=== PATIENT | female | born 1985 | race Two or more races ===

== ENCOUNTER 2016-08-21 21:51 | Emergency (ER) | payer MEDICAID ==
[2016-08-22] MEDS ORDERED: ACETAMINOPHEN 325 MG TABLET PO ONE (00:19)
[2016-08-22 01:01] LABS: APPEARANCE,URINE SLIGHTLY-CLOUDY; BILIRUBIN,URINE MODERATE (NEGATIVE); GLUCOSE, URINE NEGATIVE (NEGATIVE); KETONES,URINE 20 mg/dL (NEGATIVE); LEUKOCYTE ESTERASE,URINE NEGATIVE (NEGATIVE); NITRITE,URINE NEGATIVE (NEGATIVE); PROTEIN,URINE 30 mg/dL (NEGATIVE); URINE SPECIFIC GRAVITY 1.038
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
[2016-08-22] MEDS ORDERED: NAPROXEN 250 MG TABLET PO ONE (02:48)
[2016-08-22] MEDS ORDERED: TRAMADOL HCL 50 MG TABLET PO ONE (02:56)
[2016-08-22 03:30] VITALS: BP 136/98
== END 2016-08-22 03:22 | disposition home or self-care (01) ==
LOC: ER 21:51
DX: R68.89 Other general symptoms and signs (principal); M79.1 Myalgia; R05 Cough; F17.200 Nicotine dependence, unspecified, uncomplicated
CPT/HCPCS: 71020; 81001; 81025; 87804; 99283

== ENCOUNTER → 2016-09-24 | Outpatient (CLI) | payer MEDICAID | LOC: RAD 09:43 | PROVIDERS: ATTEND Physician Assistant | DX: R10.31 Right lower quadrant pain (principal) | CPT/HCPCS: 74000 ==

== ENCOUNTER 2016-10-13 11:59 | Emergency (ER) | payer MEDICAID ==
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
[2016-10-13 14:16] VITALS: BP 126/88
== END 2016-10-13 14:12 | disposition home or self-care (01) ==
LOC: ER 11:59
DX: S02.5XXA Fracture of tooth (traumatic), initial encounter for closed fracture (principal); X58.XXXA Exposure to other specified factors, initial encounter; Y93.89 Activity, other specified; K02.9 Dental caries, unspecified; F17.200 Nicotine dependence, unspecified, uncomplicated; J45.909 Unspecified asthma, uncomplicated
CPT/HCPCS: 99282

== ENCOUNTER 2016-11-19 12:46 | Emergency (ER) | payer MEDICAID ==
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
[2016-11-19 15:00] LABS: ABSOLUTE BASOPHILS # (AUTO) 0.1 10^3/uL (0.0-0.2); ABSOLUTE EOSINOPHILS # (AUTO) 0.1 10^3/uL (0.0-0.6); ABSOLUTE LYMPHOCYTES (AUTO) 2.7 10^3/uL (0.5-4.7); ABSOLUTE MONOCYTES (AUTO) 0.8 10^3/uL (0.1-1.4); BASOPHILS % (AUTO) 0.8 % (0-2); EOSINOPHILS % (AUTO) 1.3 % (0-6); HEMATOCRIT 40.1 % (36.0-47.0); HEMOGLOBIN 13.1 g/dL (12.0-15.5); HGB HCT DIFFERENCE -0.8; LYMPHOCYTES % (AUTO) 25.1 % (13-45); MEAN CORPUSCULAR HEMOGLOBIN 30.2 pg (27.0-33.4); MEAN CORPUSCULAR HGB CONC 32.5 g/dL (32.0-36.0); MEAN CORPUSCULAR VOLUME 93 fl (80-97); MONOCYTES % (AUTO) 7.5 % (3-13); RED BLOOD COUNT 4.32 10^6/uL (3.72-5.28); RED CELL DISTRIBUTION WIDTH 16.6 % (11.5-14.0); SEGMENTED NEUTROPHILS % (AUTO) 65.3 % (42-78); WHITE BLOOD COUNT 10.8 10^3/uL (4.0-10.5)
[2016-11-19 15:11] LABS: ALANINE AMINOTRANSFERASE 21 U/L (9-52); ALBUMIN 4.6 g/dL (3.5-5.0); ALKALINE PHOSPHATASE 58 U/L (38-126); ANION GAP 13 (5-19); ASPARTATE AMINO TRANSFERASE 15 U/L (14-36); BILIRUBIN,DIRECT 0.3 mg/dL (0.0-0.4); BILIRUBIN,TOTAL 0.7 mg/dL (0.2-1.3); BLOOD UREA NITROGEN 10 mg/dL (7-20); CALCIUM 9.6 mg/dL (8.4-10.2); CARBON DIOXIDE 27 mmol/L (22-30); CHLORIDE 105 mmol/L (98-107); CREATININE RESULT 0.76 mg/dL (0.52-1.25); GLUCOSE 46 mg/dL (75-110); POTASSIUM 4.1 mmol/L (3.6-5.0); SODIUM 145.4 mmol/L (137-145); TOTAL PROTEIN 8.4 g/dL (6.3-8.2)
[2016-11-19] MEDS ORDERED: OXYCODONE-ACETAMINOPHEN 5-325 MG TABLET PO ONE (15:32)
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
[2016-11-19 16:30] LABS: APPEARANCE,URINE CLOUDY; BILIRUBIN,URINE NEGATIVE (NEGATIVE); GLUCOSE, URINE NEGATIVE (NEGATIVE); KETONES,URINE NEGATIVE (NEGATIVE); LEUKOCYTE ESTERASE,URINE NEGATIVE (NEGATIVE); NITRITE,URINE NEGATIVE (NEGATIVE); PROTEIN,URINE NEGATIVE (NEGATIVE)
[2016-11-19 16:42] VITALS: BP 143/92
== END 2016-11-19 16:40 | disposition home or self-care (01) ==
LOC: ER 12:46
DX: O46.91 Antepartum hemorrhage, unspecified, first trimester (principal); R10.30 Lower abdominal pain, unspecified; F17.200 Nicotine dependence, unspecified, uncomplicated
CPT/HCPCS: 36415; 80053; 81001; 84702; 85025; 99284

== ENCOUNTER 2017-07-21 14:50 | Emergency (ER) | payer MEDICAID ==
[2017-07-21 15:16] VITALS: BP 146/97
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
[2017-07-21 17:47] LABS: BACTERIA (WET MOUNT) 3+ BACTERIA SEEN; RBCS (WET MOUNT) 1+ RBCS SEEN; T.VAGINALIS (WET MOUNT) NO TRICHOMONAS SEEN; WBCS (WET MOUNT) 1+ WBCS SEEN; YEAST (WET MOUNT) NO YEAST SEEN
[2017-07-21 18:00] LABS: APPEARANCE,URINE CLEAR; BILIRUBIN,URINE NEGATIVE (NEGATIVE); COLOR,URINE YELLOW; GLUCOSE, URINE NEGATIVE (NEGATIVE); KETONES,URINE NEGATIVE (NEGATIVE); LEUKOCYTE ESTERASE,URINE NEGATIVE (NEGATIVE); NITRITE,URINE NEGATIVE (NEGATIVE); PROTEIN,URINE NEGATIVE (NEGATIVE); URINE SPECIFIC GRAVITY 1.024
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
== END 2017-07-21 18:30 | disposition left against medical advice (07) ==
LOC: ER 14:50
DX: O26.851 Spotting complicating pregnancy, first trimester (principal); O26.891 Other specified pregnancy related conditions, first trimester; R10.2 Pelvic and perineal pain; O99.511 Diseases of the respiratory system complicating pregnancy, first trimester; J45.909 Unspecified asthma, uncomplicated; O99.331 Smoking (tobacco) complicating pregnancy, first trimester; O99.89 Other specified diseases and conditions complicating pregnancy, childbirth and the puerperium; M54.5 Low back pain; Z3A.01 Less than 8 weeks gestation of pregnancy; Z87.42 Personal history of other diseases of the female genital tract
CPT/HCPCS: 36415; 81001; 84702; 86900; 86901; 87210; 99281

== ENCOUNTER → 2017-07-23 | Outpatient (CLI) | payer MEDICAID ==
--- NOTE | 2017-07-23 14:55 | RADIOLOGY REPORT (SQ) ---
EXAM DESCRIPTION: U/S [id number] TRNABD 1GES W/ODOP COMPLETED DATE/TIME: 07/23/2017 2:45 pm REASON FOR STUDY: LESS THAN 8 WEEKS GESTATION OF (Z3A.01) Z3A.01 LESS THAN 8 WEEKS GESTAT ION OF COMPARISON: None. TECHNIQUE: Transvaginal and transabdominal static and realtime grayscale images acquired of the pelv is. Additional selected spectral and color Doppler images recorded. All images stored on PACs. BHC LIMITATIONS: None. FINDINGS: UTERUS: No visualized intrauterine . RIGHT ADNEXA: Normal ovary with normal vascular flow. No adnexal free fluid. No adnexal masses. LEFT ADNEXA: Normal ovary with normal vascular flow. No adnexal free fluid. No adnexal masses. FREE FLUID: None. OTHER: No other significant finding. IMPRESSION: NO VISUALIZED INTRA- OR EXTRAUTERINE . bHCG LEVEL TOO LOW TO EXPECT VISUALIZATION OF . ECTOPIC CANNOT BE EXCLUDED. FOLLOW-UP ULTRASOUND AND SERIAL BHCG LEVELS STRONGLY RECOMMENDED TO ACCURATELY ASSESS STATU S. TECHNICAL DOCUMENTATION: JOB ID: [id number] [employer]- All Rights Reserved
== END ==
LOC: RAD 12:27
PROVIDERS: ATTEND Physician Assistant
DX: Z34.91 Encounter for supervision of normal pregnancy, unspecified, first trimester (principal); Z3A.01 Less than 8 weeks gestation of pregnancy
CPT/HCPCS: 76801

== ENCOUNTER 2017-07-28 08:18 | Emergency (ER) | payer MEDICAID ==
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
[2017-07-28] MEDS ORDERED: ACETAMINOPHEN 325 MG TABLET PO ONE (10:08)
--- NOTE | 2017-07-28 11:20 | RADIOLOGY REPORT (SQ) ---
EXAM DESCRIPTION: U/S OB TRANSVAGINAL W/O DOP COMPLETED DATE/TIME: 07/28/2017 11:08 am REASON FOR STUDY: vaginal bleeding, + preg TECHNIQUE: Endovaginal static and realtime grayscale images acquired of the pelvis. Additional selec alix spectral and color Doppler images recorded. All images stored on PACs. BHC,252 today (was 479 on 07/23/2017) LIMITATIONS: None. FINDINGS: UTERUS: No visualized intrauterine . Uterus is 9.2 x 5.6 x 4.3 cm in size. Endo metrial stripe 9 mm in thickness. No intrauterine gestational sac identified. RIGHT ADNEXA: Normal ovary with normal vascular flow. Right ovary 3 x 2.1 x 1.6 cm in size. No adnexal free fluid. No adnexal masses. LEFT ADNEXA: Normal ovary with normal vascular flow. Left ovary 2.3 x 2.4 x 1.6 cm in size. No adnexal free fluid. No adnexal masses. FREE FLUID: None. OTHER: No other significant finding. IMPRESSION: NO VISUALIZED INTRA- OR EXTRAUTERINE . bHCG LEVEL TOO LOW TO EXPECT VISUALIZATION OF . ECTOPIC CANNOT BE EXCLUDED. FOLLOW-UP ULTRASOUND AND SERIAL BHCG LEVELS STRONGLY RECOMMENDED TO ACCURATELY ASSESS STATU S. TECHNICAL DOCUMENTATION: JOB ID: [id number] [employer]- All Rights Reserved COMPARISON: None. 07/23/2017
[2017-07-28 11:52] VITALS: BP 135/92
== END 2017-07-28 11:50 | disposition home or self-care (01) ==
LOC: ER 08:18
DX: O20.0 Threatened abortion (principal); R10.2 Pelvic and perineal pain; Z3A.00 Weeks of gestation of pregnancy not specified; F17.200 Nicotine dependence, unspecified, uncomplicated
CPT/HCPCS: 99284; 36415; 84702; 76817; J3490

== ENCOUNTER 2017-08-28 18:19 | Emergency (ER) | payer MEDICAID ==
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
[2017-08-28 19:42] LABS: ABSOLUTE BASOPHILS # (AUTO) 0.1 10^3/uL (0.0-0.2); ABSOLUTE EOSINOPHILS # (AUTO) 0.1 10^3/uL (0.0-0.6); ABSOLUTE LYMPHOCYTES (AUTO) 2.9 10^3/uL (0.5-4.7); ABSOLUTE MONOCYTES (AUTO) 0.9 10^3/uL (0.1-1.4); ABSOLUTE NEUT (AUTO) 8.9 10^3/uL (1.7-8.2); BASOPHILS % (AUTO) 0.7 % (0-2); HEMATOCRIT 42.1 % (36.0-47.0); LYMPHOCYTES % (AUTO) 22.8 % (13-45); MEAN CORPUSCULAR HEMOGLOBIN 30.4 pg (27.0-33.4); MEAN CORPUSCULAR HGB CONC 33.2 g/dL (32.0-36.0); MEAN CORPUSCULAR VOLUME 91 fl (80-97); MONOCYTES % (AUTO) 6.8 % (3-13); PLATELET COUNT 326 10^3/uL (150-450); RED CELL DISTRIBUTION WIDTH 16.2 % (11.5-14.0); SEGMENTED NEUTROPHILS % (AUTO) 68.7 % (42-78); TOTAL CELLS COUNTED % (AUTO) 100 %; WHITE BLOOD COUNT 12.9 10^3/uL (4.0-10.5)
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
[2017-08-28 19:57] LABS: ANION GAP 13 (5-19); BLOOD UREA NITROGEN 5 mg/dL (7-20); CALCIUM 10.1 mg/dL (8.4-10.2); CARBON DIOXIDE 28 mmol/L (22-30); CHLORIDE 103 mmol/L (98-107); GLUCOSE 87 mg/dL (75-110); SODIUM 144.4 mmol/L (137-145)
[2017-08-28] MEDS ORDERED: KETOROLAC TROMETHAMINE INJ/PF 30 MG/1 ML SDV IV ONE (20:13)
[2017-08-28] MEDS ORDERED: METHOTREXATE SODIUM INJ/PF 50 MG/2 ML IM PRN ×2 (20:42→22:00)
[2017-08-28 23:05] VITALS: BP 126/84
== END 2017-08-28 23:05 | disposition home or self-care (01) ==
LOC: ER 18:19
DX: O00.102 Left tubal pregnancy without intrauterine pregnancy (principal); R10.9 Unspecified abdominal pain; R10.2 Pelvic and perineal pain; O99.331 Smoking (tobacco) complicating pregnancy, first trimester; Z3A.11 11 weeks gestation of pregnancy
CPT/HCPCS: 99284; 96372; 96374; 86900; 86901; 36415; 86850; 84702; 85025; 80048; J9260; J1885

== ENCOUNTER → 2017-08-28 | Outpatient (CLI) | payer MEDICAID ==
--- NOTE | 2017-08-28 17:10 | RADIOLOGY REPORT (SQ) ---
EXAM DESCRIPTION: U/S OB TRANSVAGINAL W/O DOP COMPLETED DATE/TIME: 08/28/2017 4:49 pm REASON FOR STUDY: HEMORRHAGE IN EARLY , UNSPECIFIED O20.9 HEMORRHAGE IN EARLY , U NSPECIFIED COMPARISON: OB ultrasound 07/28/2017, 07/23/2017 TECHNIQUE: Endovaginal static and realtime grayscale images acquired of the pelvis. Additional selec alix spectral and color Doppler images recorded. All images stored on PACs. bHCG: Not available LIMITATIONS: None. FINDINGS: In the left adnexa, between the uterus and ovaries a 2.5 cm mixed echogenicity mass is pre sent with central cystic area. This is worrisome for an adnexal ectopic . This report was called to Nahed Brooke 1655 hours, 08/28/2017. No free pelvic fluid. UTERUS: No masses. No anomalies. Uterus measures 9.4 x 5.2 x 4.2 cm in size CERVICAL LENGTH: 3.6 cm Closed. RIGHT ADNEXA: Normal ovary with normal vascular flow. Right ovary 3.8 x 1.9 x 1.3 cm in size No adnexal free fluid. No adnexal masses. LEFT ADNEXA: Normal ovary with normal vascular flow. Left ovary 2.7 x 1.9 x 1.6 cm in size. No adnexal free fluid. 2.5 cm complex cystic mass in the adnexal likely an ectopic as above. FREE FLUID: None. OTHER: No other significant finding. IMPRESSION: No intrauterine gestational sac 2.5 cm complex cystic mass in the left adnexa worrisome for ectopic . Trimester of : First - 0 to 13 weeks. COMMENT: Pertinent findings on the imaging study reported as a CRITICAL RESULT to DOMINGUEZ BROOKE at16:54 on 08/28/2017. Category of Critical Result: Left adnexal ectopic TECHNICAL DOCUMENTATION: JOB ID: [id number] [employer]- All Rights Reserved Reading location - IP/workstation name: [email or web address]
== END ==
LOC: RAD 15:52
PROVIDERS: ATTEND Physician Assistant
DX: O20.9 Hemorrhage in early pregnancy, unspecified (principal); Z3A.00 Weeks of gestation of pregnancy not specified
CPT/HCPCS: 76817

== ENCOUNTER 2018-01-16 16:30 | Emergency (ER) | payer OTHER, MEDICAID ==
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
--- NOTE | 2018-01-16 17:43 | RADIOLOGY REPORT (SQ) ---
EXAM DESCRIPTION: HAND LEFT 3 VIEWS COMPLETED DATE/TIME: 01/16/2018 5:24 pm REASON FOR STUDY: injury to multiple finger heavy object dropped on COMPARISON: None. EXAM PARAMETERS: NUMBER OF VIEWS: Three views. TECHNIQUE: AP, lateral and oblique radiographic images acquired of the left hand. LIMITATIONS: None. FINDINGS: MINERALIZATION: Normal. BONES: No acute fracture or dislocation. No worrisome bone lesions. JOINTS: No effusions. SOFT TISSUES: No soft tissue swelling. No foreign body. OTHER: No other significant finding. IMPRESSION: NEGATIVE STUDY OF THE LEFT HAND. NO RADIOGRAPHIC EVIDENCE OF ACUTE INJURY. TECHNICAL DOCUMENTATION: JOB ID: [id number] [employer]- All Rights Reserved Reading location - IP/workstation name: [email or web address]
[2018-01-16] MEDS ORDERED: KETOROLAC TROMETHAMINE INJ/PF 30 MG/1 ML SDV IM ONE (18:32)
[2018-01-16 19:23] VITALS: BP 132/88
== END 2018-01-16 19:05 | disposition home or self-care (01) ==
LOC: ER 16:30
DX: S60.022A Contusion of left index finger without damage to nail, initial encounter (principal); S60.032A Contusion of left middle finger without damage to nail, initial encounter; S60.042A Contusion of left ring finger without damage to nail, initial encounter; M79.642 Pain in left hand; W20.8XXA Other cause of strike by thrown, projected or falling object, initial encounter; Y99.0 Civilian activity done for income or pay; F17.210 Nicotine dependence, cigarettes, uncomplicated; Z71.6 Tobacco abuse counseling; J45.909 Unspecified asthma, uncomplicated
CPT/HCPCS: 99406; 99283; 96372; 73130; 29125; J1885

== ENCOUNTER → 2018-03-17 | Outpatient (CLI) | payer SELFPAY ==
--- NOTE | 2018-03-17 15:07 | RADIOLOGY REPORT (SQ) ---
EXAM DESCRIPTION: U/S [id number] TRNABD 1GES W/ODOP COMPLETED DATE/TIME: 03/17/2018 2:27 pm REASON FOR STUDY: ENCOUNTER FOR SUPRVSN OF NORMAL , FIRST TRIMESTER Z34.81 ENCOUNTER FOR S UPRVSN OF NORMAL , FIRST TRIM COMPARISON: None. TECHNIQUE: Transabdominal static and realtime grayscale images acquired of the pelvis. Additional se lected spectral and color Doppler images recorded. All images stored on PACs. bHCG: Not available CLINICAL DATES: None available LIMITATIONS: None. FINDINGS: FETUS: Single Living intrauterine . ULTRASOUND EGA: 11 weeks 1 day ULTRASOUND DILMA: 09/30/2018 EFW: Not applicable less than 20 weeks. CRL: 5.1 cm FHR: 158 beats per minute. SURVEY: No visualized anomalies. AMNIOTIC FLUID: Adequate amount. PLACENTA: Not yet developed due to early gestation. SUBCHORIONIC BLEED: No SIZE OF BLEED: Not applicable. UTERUS: No masses. No anomalies. Uterus is 11 x 9 x 8 cm in size CERVICAL LENGTH: Closed, 3.2 cm in length RIGHT ADNEXA: Normal ovary with normal vascular flow. Right ovary 2.5 x 1.7 x 1.4 cm in size. No adnexal free fluid. No adnexal masses. LEFT ADNEXA: Normal ovary with normal vascular flow. Left ovary 2 x 1.7 x 1.8 cm in size No adnexal free fluid. No adnexal masses. FREE FLUID: None. OTHER: No other significant finding. IMPRESSION: LIVING INTRAUTERINE . EGA 11 weeks 1 day Trimester of : First - 0 to 13 weeks. TECHNICAL DOCUMENTATION: JOB ID: [id number] [employer]- All Rights Reserved rev Reading location - IP/workstation name: [email or web address]
== END ==
LOC: RAD 13:57
PROVIDERS: ATTEND Nurse Practitioner
DX: Z34.81 Encounter for supervision of other normal pregnancy, first trimester (principal)
CPT/HCPCS: 76801

== ENCOUNTER 2018-05-08 18:25 | Emergency (ER) | payer MEDICAID ==
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
== END 2018-05-08 19:00 | disposition home or self-care (01) ==
LOC: ER 18:25
DX: O20.0 Threatened abortion (principal); O26.892 Other specified pregnancy related conditions, second trimester; R10.30 Lower abdominal pain, unspecified; O99.512 Diseases of the respiratory system complicating pregnancy, second trimester; J45.909 Unspecified asthma, uncomplicated; Z3A.19 19 weeks gestation of pregnancy
CPT/HCPCS: 99283

== ENCOUNTER → 2018-05-12 | Outpatient (CLI) | payer MEDICAID ==
--- NOTE | 2018-05-12 15:21 | RADIOLOGY REPORT (SQ) ---
EXAM DESCRIPTION: U/S OB 14+ TRNABD 1GES W/O DOP COMPLETED DATE/TIME: 05/12/2018 2:16 pm REASON FOR STUDY: ENCTR FOR SUPERVISION OF OTHER NORMAL 2ND TRIMESTER (Z34.82) Z34.82 ENC OUNTER FOR SUPRVSN OF NORMAL , SECOND TRI COMPARISON: OB ultrasound 03/17/2018 TECHNIQUE: Static and Dynamic grayscale imaging performed of gravid uterus using transabdominal appr oach. Additional selected color Doppler and spectral images recorded. All stored on PACS. LIMITATIONS: None. FINDINGS: FETUSES SEEN:1 EGA: 18 weeks 6 days Calculated using BPD,FL,HC,AC documented on images. Last menses 12/25/2017 generates a clinical age of 19 weeks 5 days, clinical EDC 10/01/2018. DILMA: By ultrasound, 10/07/2018 EFW: 265 grams PERCENTILE: Not applicable. Fetus less than or equal to 20 weeks gestation. TENISHA: Adequate PLACENTA: Posterior grade 1. Along the lower uterine segment, a 10 x 6 cm heterogeneous mass is pres ent covering the cervical internal os. This could either represent a large chorioangioma, or a locul ated subacute hemorrhage at the placental edge. This finding was discussed with Jessica Teixeira, [facility], 1430 hours 05/12/2018. Level 2 ultrasound is recommended for f ollowup PRESENTATION: Transverse ANATOMY: HEART RATE: 149 beats per minute. FOUR CHAMBER HEART: Visualized. THREE VESSEL CORD: Two-vessel cord CORD INSERTION: Visualized. KIDNEYS AND BLADDER: Visualized. Appear normal. STOMACH: Visualized. Appears normal. SPINE: Normal as visualized. BRAIN AND LATERAL VENTRICLES: Visualized. Appear normal. OTHER: No other significant finding. MATERNAL ADNEXA: Maternal ovaries not visualized. CERVICAL LENGTH: Closed, 3.2 cm in length OTHER: No other significant finding. IMPRESSION: LIVING INTRAUTERINE , heart rate 158 beats per minute. ESTIMATED GESTATIONAL AGE by ultrasound is 18 weeks 6 days two-vessel cord. 10 x 6 cm heterogeneous mass in the lower uterine segment at the inferior placental edge covering the internal cervical os, worrisome for placental chorioangioma. A complex hematoma could also have thi s appearance. Level 2 ultrasound is recommended. Findings discussed with the patient's alisa se pbx repairer as above Trimester of : Second trimester - 13 weeks 1 day to 27 weeks 6 days. TECHNICAL DOCUMENTATION: JOB ID: [id number] [employer]- All Rights Reserved Reading location - IP/workstation name: [email or web address]
== END ==
LOC: RAD 12:51
PROVIDERS: ATTEND Nurse Practitioner
DX: Z34.82 Encounter for supervision of other normal pregnancy, second trimester (principal)
CPT/HCPCS: 76805

== ENCOUNTER 2018-07-30 13:06 | Outpatient (CLI) | payer MEDICAID | END 2018-07-30 13:45 | disposition home or self-care (01) | LOC: LC 13:06 | PROVIDERS: ATTEND Obstetrics & Gynecology | PROC: 4A1HXCZ Monitoring of Products of Conception, Cardiac Rate, External Approach (ICD-10-PCS; principal; 2018-07-30) | DX: O09.523 Supervision of elderly multigravida, third trimester (principal); Z3A.31 31 weeks gestation of pregnancy | CPT/HCPCS: 59025 ==

== ENCOUNTER 2018-08-06 13:58 | Outpatient (CLI) | payer MEDICAID ==
--- NOTE | 2018-08-06 14:00 | Non Stress Test Report ---
Non Stress Test Datetime Report Generated by CPN: 08/06/2018 14:00 DEMOGRAPHIC EGA NST: 31.0 INDICATION Indication for Study: Ordered by Provider MONITORING Monitor Explained: Monitor Explained; Test Explained; Patient Verbalized Understanding Time on Monitor: 07/30/2018 13:14 Time off Monitor: 07/30/2018 13:42 NST Duration: 28 NST INTERVENTIONS BABY A: [id number] BABY A Movement : Present Contraction Frequency : none FHR Baseline : 145 Accelerations : 15X15 Decelerations : None Variability : Moderate 6-25bpm NST Review: Meets Criteria for Reactive NST NST Review and Verified By : , RN NST Results: Reactive NST REPORT Report Trigger: Send Report
== END 2018-08-06 14:46 | disposition home or self-care (01) ==
LOC: LC 13:58
PROVIDERS: ATTEND Student in an Organized Health Care Education/Training Program
DX: O36.8390 Maternal care for abnormalities of the fetal heart rate or rhythm, unspecified trimester, not applicable or unspecified (principal); Z3A.32 32 weeks gestation of pregnancy
CPT/HCPCS: 59025

== ENCOUNTER 2018-10-09 13:45 | Emergency (ER) | payer MEDICAID ==
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
[2018-10-09 15:05] VITALS: BP 134/86
== END 2018-10-09 15:00 | disposition home or self-care (01) ==
LOC: ER 13:45
DX: Z18.9 Retained foreign body fragments, unspecified material (principal); Y83.8 Other surgical procedures as the cause of abnormal reaction of the patient, or of later complication, without mention of misadventure at the time of the procedure; Y76.3 Surgical instruments, materials and obstetric and gynecological devices (including sutures) associated with adverse incidents
CPT/HCPCS: 99283

== ENCOUNTER 2019-08-08 16:23 | Emergency (ER) | payer MEDICAID ==
[2019-08-08] MEDS ORDERED: OXYCODONE-ACETAMINOPHEN 5-325 MG TABLET PO ONE (17:32)
--- NOTE | 2019-08-08 18:01 | RADIOLOGY REPORT (SQ) ---
EXAM DESCRIPTION: HAND LEFT 3 VIEWS COMPLETED DATE/TIME: 08/08/2019 5:48 pm REASON FOR STUDY: digits closed in car door COMPARISON: None. EXAM PARAMETERS: NUMBER OF VIEWS: Three views. TECHNIQUE: AP, lateral and oblique radiographic images acquired of the left hand. LIMITATIONS: None. FINDINGS: MINERALIZATION: Normal. BONES: No acute fracture or dislocation. No worrisome bone lesions. JOINTS: No effusions. SOFT TISSUES: No soft tissue swelling. No foreign body. OTHER: No other significant finding. IMPRESSION: NEGATIVE STUDY OF THE LEFT HAND. NO RADIOGRAPHIC EVIDENCE OF ACUTE INJURY. TECHNICAL DOCUMENTATION: JOB ID: [id number] 2010 [employer]- All Rights Reserved Reading location - IP/workstation name: [email or web address]
[2019-08-08] MEDS ORDERED: HYDROCODONE/ACETAMINOPHEN 5-325 MG (6 TAB/ER DISP) PO PRN (18:44)
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
[2019-08-08 19:04] VITALS: BP 179/115
== END 2019-08-08 19:10 | disposition home or self-care (01) ==
LOC: ER 16:23
DX: S60.222A Contusion of left hand, initial encounter (principal); M79.642 Pain in left hand; W22.8XXA Striking against or struck by other objects, initial encounter; F17.200 Nicotine dependence, unspecified, uncomplicated
CPT/HCPCS: 99283

== ENCOUNTER → 2019-11-11 | Outpatient (CLI) | payer MEDICAID ==
--- NOTE | 2019-11-11 15:44 | RADIOLOGY REPORT (SQ) ---
EXAM DESCRIPTION: HAND BILATERAL 3 VIEWS IMAGES COMPLETED DATE/TIME: 11/11/2019 3:34 pm REASON FOR STUDY: PAIN IN JOINTS OF RIGHT HAND M25.541 PAIN IN JOINTS OF RIGHT HAND COMPARISON: None. EXAM PARAMETERS: NUMBER OF VIEWS: Three views right hand. Three views left hand. TECHNIQUE: AP, lateral and oblique radiographic images acquired of bilateral hands. LIMITATIONS: None. FINDINGS: RIGHT HAND: MINERALIZATION: Normal. BONES: No acute fracture or dislocation. A well-defined ossific density superior to the lateral aspe ct of the distal ulna may represent a normal developmental anatomic variant. JOINTS: No erosions. No ashleigh-articular osteopenia. No chondrocalcinosis. SOFT TISSUES: No swelling. No calcifications. OTHER: No other significant finding. LEFT HAND: MINERALIZATION: Normal. BONES: No acute fracture or dislocation. No worrisome bone lesions. No significant osteophytes. JOINTS: No erosions. No ashleigh-articular osteopenia. No chondrocalcinosis. SOFT TISSUES: No swelling. No calcifications. OTHER: No other significant finding. IMPRESSION: 1. NEGATIVE STUDY BILATERAL HANDS. TECHNICAL DOCUMENTATION: JOB ID: [id number] 2010 [employer]- All Rights Reserved Reading location - IP/workstation name: [email or web address]
== END ==
LOC: OD 15:22
PROVIDERS: ATTEND Physician Assistant
DX: M25.541 Pain in joints of right hand (principal)